=== PATIENT | male | born 1990 | race Caucasian/White ===

== ENCOUNTER 2016-08-01 15:40 | Emergency (ER) | payer SELFPAY ==
--- NOTE | 2016-08-01 16:30 | ERNOTE ---
Psychological HPI - Date Date of Service: 08/01/16 - General Chief Complaint: Psychiatric Problem Source: patient, police, other - court committal papers - Immun/Allergies/Home Medications Allergies/Adverse Reactions: Allergies No Known Allergies Allergy (Verified 08/01/16 15:53) Home Medications: HOME MEDICATIONS NK [No Home Medication] 08/01/16 [Last Taken Unknown] - History of Present Illness Narrative: Patient brought in by law enforcement for court committal for any psych mental evaluation. Patient in which the family states he's been upset depressed and dealing with some anger issues. In this committal papers his mom states that he "trashed her house" broke down doors and tables and is lost over 75 pounds in 2 months His sister feels that he's been depressed he's got a lot of stress going on he' s not been eating very well and that he is a harm to himself and others he is also doing drugs. 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 He states that he has been under a lot of stress he lost custody of his 3 kids but still does not feel suicidal or homicidal. He is presently living with his mom as he does not have anywhere else to go at this time. Time Seen by Provider: 08/01/16 16:13 Arrived by: police Onset/duration: gradual onset Situational Problems: significant other Associated Symptoms: angry, frustrated, agitated Review of Systems - Review of Systems Constitutional: Absent: fever, chills Cardiology: Absent: chest pain, palpitations Gastrointestinal/Abdominal: Absent: nausea, vomiting Neurological: Absent: dizziness/light-headedness Psych: Present: other - patient denies to be suicidal or homicidal. His court committal papers that were taken from his mother in sister states he's been having some anger issues stating that he is depressed and made some comments about being suicidal All Other Systems: All systems neg except as marked - Patient's Past Medical History Patient History - Medical: No pertinent hx Patient History - Cardiac/Respiratory: No pertinent hx Patient History - Cancer: No Hx of Cancer Patient History - Surgical Procedures: No surgical history - Social History Living Situations: other Abuse History: Hx of Substance Use Smoking Status: Current every day smoker Alcohol Use: none Drug Use: marijuana, meth - Immunizations Hx Pneumococcal Vaccination: No History of Influenza Vaccine: No Physical Exam - Physical Exam General Appearance: Present: wd/wn, alert, no apparent distress Ears, Nose, Throat: Present: normal ENT inspection, normal pharynx Neck: Present: normal inspection, nontender Respiratory: Present: no respiratory distress, normal breath sounds, no accessory muscle use, chest nontender, lungs clear Cardiovascular/Chest: Present: regular rate, rhythm, no murmur, normal peripheral pulses Gastrointestinal/Abdominal: Present: normal bowel sounds, nontender, nondistended, soft, no organomegaly Back Exam: Present: normal inspection, normal range of motion, no CVA tenderness Extremity Exam: Present: normal inspection, non-tender Neurological Exam: Present: alert, oriented, normal mood/affect, no motor/ sensory deficits Skin Exam: Present: normal color, warm/dry Lymphatic Exam: Present: no adenopathy ED Progress - Results and Orders Patient's Lab Results:: I have reviewed the patient's lab results. - Vital Signs Patient's Vital Signs:: I have reviewed the patient's vital signs. Vital Signs: Vital Signs 08/01/16 15:44 Temperature 35.0 C L Pulse Rate 90 Respiratory 16 Rate Blood Pressure 146/93 O2 Sat by Pulse 100 Oximetry - Progress/Reassessment Chief Complaint: Psychiatric Problem Progress:: Unchanged Progress Note-Subjective: 08/01/16 19:56 Doing well he's a court committal will definitely need placement transfer care to Dr. Main Driscoll. Awaiting placement and disposition. - Transfer of Care Physician Sign Out: Valeriy Ceja Receiving Physician: Main Driscoll Departure Clinical Impression: Agitation, Substance abuse, Court decision Depression Qualifiers: Depression Type: unspecified Qualified Code(s): F32.9 - Major depressive disorder, single episode, unspecified - Departure
[2016-08-01 16:32] LABS: Hematocrit 43.4 % (42.0-52.0); Hemoglobin 14.9 gm/dL (13.5-18.0); Mean Cell Volume 87.3 fl (78-100); Mean Corpuscular Hgb Conc 34.3 g/dl (32-36); Mean Platelet Volume 9.2 fl (6.0-9.5); Neutrophil # 7.6 K/mm3 (1.3-6.0); Neutrophil % 75.9 % (42-75.0); Platelet Count 282 K/mm3 (150-450); Red Blood Count 4.97 M/mm3 (4.7-6.0); Red Cell Distribution Width 12.9 % (11.5-14.0); White Blood Count 10.1 K/mm3 (4.0-10.5)
[2016-08-01 16:41] LABS: Urine Bilirubin Negative (NEGATIVE); Urine Blood Negative /ul (NEGATIVE); Urine Ketone Negative (NEGATIVE); Urine Nitrite Negative (NEGATIVE); Urine Protein Negative (NEGATIVE); Urine Specific Gravity >=1.030 SP.GR. (1.005-1.030); Urine Urobilinogen Normal (NORMAL)
[2016-08-01 16:55] LABS: ALT 22 U/L (19-67); AST 19 U/L (0-48); Albumin * 3.6 gm/dl (3.4-5.0); Alkaline Phosphatase * 90 U/L (50-170); Anion Gap 10.9 mmol/L (6.8-13.8); BUN/Creatinine Ratio 11.3 (9.0-21.6); Bilirubin, Total 0.6 mg/dL (0.0-1.1); Blood Urea Nitrogen 11 mg/dL (6-23); Carbon Dioxide 28.2 mmol/L (24-32.6); Chloride 105 mmol/L (97-106); Cocaine Ur Negative (NEGATIVE); Glucose * 109 mg/dL (70-110); Potassium 4.1 mmol/L (3.4-4.6); Salicylate Less than 2.8 mg/dL (2.8-20.0); Sodium 140 mmol/L (132-142); TSH * 0.754 uIU/mL (0.358-3.74); Total Protein 7.1 gm/dL (6.2-8.2); Urine Barbiturate Negative (NEGATIVE); Urine Benzodiazepines Negative (NEGATIVE); Urine Opiates Negative (NEGATIVE); Urine PCP Negative (NEGATIVE)
[2016-08-01 16:57] LABS: Urine THC Positive (NEGATIVE)
[2016-08-01 17:16] LABS: Urine Appearance Clear; Urine Bacteria TRACE; Urine Color Yellow; Urine RBC None Seen /hpf (0-5); Urine WBC 0-5 /hpf (0-5)
[2016-08-01 17:17] LABS: Urine Fine Granular Cast 0-5 /LPF; Urine Mucus Many - 3+
[2016-08-01 21:16] VITALS: BP 127/91
== END 2016-08-01 21:42 | disposition short-term general hospital (02) ==
LOC: ER 15:40
DX: R45.1 Restlessness and agitation (principal); F12.10 Cannabis abuse, uncomplicated; F15.10 Other stimulant abuse, uncomplicated; F32.9 Major depressive disorder, single episode, unspecified; F17.210 Nicotine dependence, cigarettes, uncomplicated
CPT/HCPCS: 36415; 80053; 81001; 84443; 85025; 99283; G0479; G0480; G0481